=== PATIENT | male | born 1955 | race Caucasian/White ===

== ENCOUNTER → 2020-12-25 07:55 | Day surgery (SDC) | payer MEDICAID ==
[~2020-12-25] VITALS: Ht 182.9 cm; Wt 93.4 kg
[~2020-12-25 07:55] MED LIST: BLOOD PRESSURE MED; GLUCOPHAGE1000 MG PO; STOMACH MEDICINE; VITAMIN B5 PO; [UNRECOGNIZED DRUG - REMARK]
[2020-12-25 08:17] LABS: BASOPHILS 1.5 % (0-2); EOSINOPHILS 9.6 % (0-7); HEMOGLOBIN 13.3 g/dL (13.5-17.5); LYMPHOCYTES 31.9 % (15-50); MCV 88.2 fL (80.0-100.0); MEAN PLATELET VOLUME 7.9 fL (7.4-10.4); MONOCYTES 6.4 % (2-11); NEUTROPHILS 50.6 % (40-80); PLATELET COUNT 179 10x3/uL (130-400); RBC 4.41 10x6/uL (4.20-6.10); RDW 15.3 % (11.5-14.5); WBC 5.6 10x3/uL (4.8-10.8)
[2020-12-25 08:40] LABS: CALC OSMOLALITY 278 mosm/kg (275-300); CALCIUM 9.4 mg/dL (8.5-10.1); CARBON DIOXIDE 29.6 mmol/L (21.0-32.0); CHLORIDE - SERUM 104 mmol/L (98-107); CREATININE - SERUM 0.8 mg/dL (0.6-1.3); GLUCOSE 165 mg/dL (74-106); POTASSIUM - SERUM 5.2 mmol/L (3.5-5.1); SODIUM 139 mmol/L (136-145); UREA NITROGEN 5 mg/dL (7-18); eGFR NON AFRICAN AMERICAN > 90 mL/min (90-120)
--- NOTE | 2020-12-25 10:04 | NUR ---
1000 - PATIENT APPROACHED THE NURSING DESK AND STATED THAT HE WAS TIRED, THIRSTY AND HUNGRY AND THAT HE WAS TIRED OF WAITING. WE EXPLAINED THAT HIS SURGERY WAS NOT EVEN SCHEDULED UNTIL 1030. WE URGED HIM TO TRY TO BE PATIENT AND WAIT FOR THE SURGERY BUT HE ASKED "WHERE DO I GET OUTTA THIS PLACE?" HE WAS STANDING JUST IN FRONT OF THE ELEVATOR SO WE LET HIM KNOW THAT HE COULD EXIT THE BUILDING USING THAT ELEVATOR. BOTH HE AND HIS FAMILY MEMBER GOT ON THE ELEVATOR AND LEFT.
== END | disposition home or self-care (01) ==
LOC: D.OPS 07:55
PROVIDERS: ATTEND Surgery
DX: K80.80 Other cholelithiasis without obstruction (principal); Z53.20 Procedure and treatment not carried out because of patient's decision for unspecified reasons